=== PATIENT | female | born 2000 | race Caucasian/White ===

== ENCOUNTER 2019-12-15 19:59 | Inpatient (IN) | payer MEDICAID, SELFPAY ==
[2019-12-15 20:00] VITALS: BP 120/72; PULSE 94; RESP 14; TEMP 37.1; O2SAT 98; BMI 36.6
--- NOTE | 2019-12-15 20:13 | HMH.EDOD ---
ED Disposition Clinical Impression: Suicide ideation Acetaminophen overdose Qualifiers: Encounter type: initial encounter Injury intent: intentional self-harm Qualified Code(s): T39.1X2A - Poisoning by 4-Aminophenol derivatives, intentional self-harm, initial encounter Depression Qualifiers: Depression Type: major depressive disorder Major depression recurrence: unspecified whether recurrent Active/Remission status: currently active Major depression episode severity: unspecified Qualified Code(s): F32.9 - Major depressive disorder, single episode, unspecified Disposition: Admitted as Observation Condition on Discharge: Good Referrals: Provider,Referral, [Primary Care Provider] - - Critical Care Critical Care Time: No Attestation: On , the high probability of a clinically significant, sudden or life threatening deterioration of the following system(s) required my full and direct attention, intervention and personal management. The time I documented below is in addition to time spent performing reported procedures but includes the following listed in this critical care notation. Medical Decision Making - Medical Records Medical records reviewed: Yes: I reviewed the patient's medical records. - [place] Inquiry Pt receiving controlled substance: No Vital Signs: 12/15/19 20:00 12/15/19 22:12 12/15/19 23:16 Temperature 98.8 F 98.0 F Temperature Source Oral Oral Pulse Rate [Right] 94 H 64 89 Respiratory Rate 14 16 16 Blood Pressure [Right Arm] 120/72 101/57 L 95/56 L Blood Pressure Mean [Right Arm] 88 71 69 Blood Pressure Source [Right Arm] Automatic Cuff Automatic Cuff Automatic Cuff Blood Pressure Position [Right Arm] Supine Supine Supine 02 Sat by Pulse Oximetry 98 98 94 L Oxygen Delivery Method Room Air Room Air Room Air 12/16/19 00:15 12/16/19 01:14 Temperature 98.0 F 98.0 F Temperature Source Oral Oral Pulse Rate [Right] 79 64 Respiratory Rate 16 16 Blood Pressure [Right Arm] 98/62 L 93/54 L Blood Pressure Mean [Right Arm] 74 67 Blood Pressure Source [Right Arm] Automatic Cuff Automatic Cuff Blood Pressure Position [Right Arm] Supine Supine 02 Sat by Pulse Oximetry 98 99 Oxygen Delivery Method Room Air Room Air - Lab Data Lab results reviewed: Yes: I reviewed the patient's lab results. Lab Results 12/15/19 20:00: Urine Color Yellow, Urine Appearance Clear, Urine pH 6.0, Ur Specific [place] <= 1.005, Urine Protein Negative, Urine Glucose (UA) Negative, Urine Ketones Negative, Urine Blood 1+, Urine Nitrate Negative, Urine Bilirubin Negative, Urine Urobilinogen 0.2, Ur Leukocyte Esterase Negative, Urine RBC 5-10, Urine WBC Occasional 12/15/19 20:00: WBC 12.0 H, RBC 4.84, Hgb 13.1, Hct 38.7, MCV 79.9 L, MCH 26.9 L, MCHC 33.7, RDW 13.5, Plt Count 243, MPV 8.0, Neut % (Auto) 78.6, Lymph % (Auto) 15.0, Rains % (Auto) 4.7, Eos % (Auto) 1.2, Baso % (Auto) 0.4, Neut # (Auto) 9.4 H, Lymph # (Auto) 1.8, Rains # (Auto) 0.6, Eos # (Auto) 0.2, Baso # (Auto) 0.1 12/15/19 20:00: Urine HCG, Qual Negative 12/15/19 20:00: Sodium 139, Potassium 4.1, Chloride 102, Carbon Dioxide 26, Anion Gap 15.1 H, BUN 15, Creatinine 0.90, Estimated Creat Clear 142, Estimated GFR 79, Est GFR ( Amer) 96, Glucose 95, Calcium 9.5, Total Bilirubin 0.2, AST 25, ALT 20, Alkaline Phosphatase 59, Total Protein 7.0, Albumin 4.2, Globulin 2.8, Albumin/Globulin Ratio 1.5, Salicylates < 1.0 L 12/15/19 20:00: Urine Opiates Screen Negative, Urine Methadone Screen Negative, Ur Barbituates Screen Negative, Ur Phencyclidine Scrn Negative, Ur Amphetamines Screen Negative, U Benzodiazepines Scrn Negative, Urine Cocaine Screen Negative, U Marijuana (THC) Screen Negative 12/15/19 22:20: Acetaminophen 81 H 12/16/19 01:05: Acetaminophen 157 H D Result diagrams: 12/15/19 20:00 12/15/19 20:00 Orders (Tests/Meds): ED MEDICATIONS Discontinued Medications Generic Name Dose Route Start Last Admin Trade Name Freq PRN Reason Stop Dose Admin A
--- NOTE | 2019-12-15 20:18 | PC.NURSE ---
Pt states she still feels like hurting herself, a 1:1 sitter was placed on pt, pt was disrobed and place in a gown, she is coopertive at this time with a flat affect
[2019-12-15 20:21] LABS: Microscopic, Urine URINE MICROSCOPIC (MICROSCOPIC)
[2019-12-15 20:24] LABS: Basophils # 0.1 K/mm3 (0-0.2); Basophils % 0.4 % (0.1-2.0); Eosinophils # 0.2 K/mm3 (0.0-0.4); Eosinophils % 1.2 % (0.1-12.0); Hematocrit 38.7 % (37.0-47.0); Hemoglobin 13.1 g/dL (12.2-16.2); Lymphocytes # 1.8 K/mm3 (0.7-4.5); Mean Corpuscular HGB Conc 33.7 g/dL (31.8-35.4); Mean Corpuscular Hemoglobin 26.9 pg (27.0-31.2); Mean Corpuscular Volume 79.9 fl (81-99); Monocytes # 0.6 K/mm3 (0.1-1.0); Monocytes % 4.7 % (1.7-9.3); Neutrophils # 9.4 K/mm3 (1.8-7.8); Neutrophils % 78.6 % (37.0-80.0); Platelet Count 243 K/mm3 (142-424); Red Blood Count 4.84 M/mm3 (4.20-5.40); Red Cell Distribution Width 13.5 % (11.5-17.5)
[2019-12-15 20:26] LABS: Appearance,Urine CLEAR (Clear); Bilirubin,Urine Negative (Negative); Blood, Urine 1+ (Negative); Chloride 102 mmol/L (98-107); Color,Urine YELLOW (Yellow); Glucose,Urine (UA) Negative (Negative); Ketones,Urine Negative (Negative); Leukocyte Esterase,Urine Negative (Negative); Nitrate,Urine Negative (Negative); Potassium 4.1 mmoL/L (3.5-5.1); Protein,Urine Negative (Negative); Sodium 139 mmol/L (136-145); Specific Gravity, Urine <= 1.005 (1.005-1.030); Urobilinogen,Urine 0.2 EU/dl (0.2)
[2019-12-15 20:29] LABS: Alanine Aminotransferase 20 U/L (12-78); Albumin Level 4.2 g/dl (3.5-5.0); Albumin/Globulin Ratio 1.5 (1.1-1.8); Alkaline Phosphatase 59 U/L (38-126); Anion Gap 15.1 mEq/L (5-15); Aspartate Amino Transferase 25 U/L (14-36); Bilirubin,Total 0.2 mg/dl (0.2-1.3); Blood Urea Nitrogen 15 mg/dl (7-17); Calcium 9.5 mg/dl (8.4-10.2); Carbon Dioxide 26 mmol/L (22.0-30.0); Creatinine Clearance Estimated 142 mL/min (50-200); Estimated Glomerular Filt Rate 79 ml/min (>60); GFR (African American) 96 ML/MIN (>60); Globulin 2.8 g/dL (1.3-3.2); Glucose 95 mg/dl (74-100)
[2019-12-15 20:30] LABS: WBC,Urine Occasional #/hpf (0-3)
--- NOTE | 2019-12-15 20:30 | PC.NURSE ---
spoke with poison control, advised to monitor until a 4 hour Acetaminophen level could be done
[2019-12-15 20:31] LABS: Urine Pregnancy, HCG Qual. Negative (Negative)
[2019-12-15 20:35] LABS: Amphetamine/Metha Screen,Urine Negative ng/ml (<1000); Benzodiazepines Screen,Urine Negative ng/ml (<200)
[2019-12-15 20:36] LABS: Barbiturates Screen,Urine Negative ng/ml (<200)
[2019-12-15 20:37] LABS: Cannabinoid Screen,Urine Negative ng/ml (<50); Cocaine Screen,Urine Negative ng/ml (<300)
[2019-12-15 20:38] LABS: Methadone Screen,Urine Negative ng/ml (<300); Salicylate < 1.0 mg/dL (2.0-20.0)
[2019-12-15 20:39] LABS: Opiate Screen,Urine Negative ng/ml (<300); Phencyclidine Screen,Urine Negative ng/ml (<25)
--- NOTE | 2019-12-15 21:11 | PC.NURSE ---
with pt permission spoke with mignon from [facility] to update her on pt condition
[2019-12-15 22:12] VITALS: BP 101/57; PULSE 64; RESP 16; O2SAT 98
[2019-12-15 22:37] LABS: Acetaminophen 81 ug/ml (10-30)
--- NOTE | 2019-12-15 22:56 | PC.NURSE ---
Poison control updated on Acetaminophen level, she is going to check with her poison control doctor and call us back.
[2019-12-15 23:16] VITALS: BP 95/56; PULSE 89; RESP 16; TEMP 36.7; O2SAT 94
[2019-12-16] VITALS (10 sets, daily range): BP systolic 93–121; BP diastolic 54–79; PULSE 54–79; RESP 16–18; TEMP 36.4–37; O2SAT 96–100; BMI 37.1
[2019-12-16 01:38] LABS: Acetaminophen 157 ug/ml (10-30)
--- NOTE | 2019-12-16 02:28 | PC.NURSE ---
Pt drank Acetylcystine without issue, pt has been cooperative, remains on 1:1 with Suicidal Ideations. Admitted to the floor, report given to Doris KAUR.
--- NOTE | 2019-12-16 02:30 | PC.NURSE ---
pt arrived to floor via wheelchair from ED
--- NOTE | 2019-12-16 03:46 | PC.NURSE ---
CONSTANTINE FROM POISON CONTROL CALLED FOR AN UPDATE ON THIS PT, UPDATE PROVIDED AND MUCOMYST ORDER VERIFIED AT THIS TIME.
--- NOTE | 2019-12-16 05:11 | PC.NURSE ---
A&OX3. PERRLA. PROOFER BLACK AND WHITE EQUAL BILAT. LUNGS CLEAR T/O AUSCULTATION, TOLERATED RA WELL. ABDOMEN NONDISTENDED, ACTIVE BOWEL SOUNDS AUSCULTATED, SOFT AND NONTENDER PER PALPATION. SINCE ARRIVAL TO FLOOR PT HAS HAD C/O NAUSEA, ADMINISTERED ZOFRAN PER OCT, ON REASSESSMENT, PT STILL C/O NAUSEA, MADE AWARE, ORDER FOR PRN 12.5 MG IV PHENERGAN OBTAINED. WHEN NURSE WENT TO GO CHECK ON PT AND OFFER DOSE OF PHENERGAN, PT WAS NOTED RESTING WITH EYES CLOSED. PT HAS REMAINED IN 1:1 OBSERVATION R/T SUICIDAL IDEATIONS. INDEPENDENT WITH ADLS. VSS. WILL CONTINUE TO MONITOR.
--- NOTE | 2019-12-16 05:40 | PC.NURSE ---
AROUND THIS TIME, POISON CONTROL WAS CONTACTED IN R/T VERIFYING LABS AND TIMES NEEDED FOR THIS PT. WAS INSTRUCTED TO OBTAIN TYLENOL, PT, INR LABS 2-4 HOURS FOLLOWING ADMINISTRATION OF LAST DOSE OF MUCOMYST GIVEN.
[2019-12-16 07:24] LABS: Basophils % 0.3 % (0.1-2.0); Chloride 104 mmol/L (98-107); Eosinophils # 0.1 K/mm3 (0.0-0.4); Eosinophils % 1.1 % (0.1-12.0); Hematocrit 41.4 % (37.0-47.0); Hemoglobin 13.5 g/dL (12.2-16.2); INR 0.96 (0.9-1.1); Lymphocytes # 1.4 K/mm3 (0.7-4.5); Lymphocytes % 15.3 % (10-50); Mean Corpuscular HGB Conc 32.6 g/dL (31.8-35.4); Mean Corpuscular Hemoglobin 26.9 pg (27.0-31.2); Mean Corpuscular Volume 82.3 fl (81-99); Mean Platelet Volume 8.1 fl (7.4-10.4); Monocytes # 0.4 K/mm3 (0.1-1.0); Monocytes % 4.1 % (1.7-9.3); Neutrophils # 7.4 K/mm3 (1.8-7.8); Neutrophils % 79.2 % (37.0-80.0); Platelet Count 270 K/mm3 (142-424); Potassium 4.2 mmoL/L (3.5-5.1); Red Blood Count 5.03 M/mm3 (4.20-5.40); Red Cell Distribution Width 13.8 % (11.5-17.5); Sodium 138 mmol/L (136-145); White Blood Count 9.3 K/mm3 (4.8-10.8)
[2019-12-16 07:26] LABS: Alkaline Phosphatase 57 U/L (38-126); Anion Gap 12.2 mEq/L (5-15); Bilirubin,Total 0.2 mg/dl (0.2-1.3); Blood Urea Nitrogen 12 mg/dl (7-17); Carbon Dioxide 26 mmol/L (22.0-30.0); Creatinine Clearance Estimated 185 mL/min (50-200); Estimated Glomerular Filt Rate 106 ml/min (>60); GFR (African American) 128 ML/MIN (>60)
[2019-12-16 07:27] LABS: Albumin Level 3.9 g/dl (3.5-5.0); Albumin/Globulin Ratio 1.4 (1.1-1.8); Calcium 9.2 mg/dl (8.4-10.2); Globulin 2.8 g/dL (1.3-3.2); Glucose 100 mg/dl (74-100); Total Protein,Serum 6.7 g/dl (6.3-8.2)
[2019-12-16 07:28] LABS: Alanine Aminotransferase 16 U/L (12-78); Aspartate Amino Transferase 25 U/L (14-36)
[2019-12-16 07:47] LABS: Acetaminophen 45 ug/ml (10-30)
--- NOTE | 2019-12-16 08:40 | P.CONPHA_ITS ---
[facility] Pharmacy VTE Monitoring - Patient Demographics Admission date: 12/16/19 Report Date: 12/16/19 Time: 08:40 Allergies/Adverse Reactions: Patient Allergies red dye Allergy (Severe, Verified 11/04/19 10:48) hives albuterol Allergy (Verified 11/04/19 10:48) Anaphylaxis Height: 1.57 m Weight: 92.108 kg Patient Problems: Current Active Problems Acetaminophen overdose (Acute) Depression (Acute) Suicide ideation (Acute) - VTE Risk Labs: VTE Related Lab Results Hgb 13.5 g/dL (12.2-16.2) 12/16/19 07:02 Hct 41.4 % (37.0-47.0) 12/16/19 07:02 Plt Count 270 K/mm3 (142-424) 12/16/19 07:02 PT 10.0 seconds (9.4-11.8) 12/16/19 07:02 INR 0.96 (0.9-1.1) 12/16/19 07:02 BUN 12 mg/dl (7-17) 12/16/19 07:02 Creatinine 0.70 mg/dl (0.52-1.04) D 12/16/19 07:02 Estimated Creat Clear 185 mL/min (50-200) 12/16/19 07:02 Was VTE Risk Assessment Performed: Yes VTE Score: 1 VTE Risk Level: Low Risk - Prophylaxis VTE Prophylaxis Ordered?: Yes Types of VTE Prophylaxis: TEDS Knee High Location of Applied Device: Bilateral Lower Extremeties
--- NOTE | 2019-12-16 09:56 | HMH.HP ---
*Admission Date: 12/16/19 *Chief complaint: Tylenol overdose *History of present illness: Ambulatory 1-year-old white female with a history of depression, anxiety and PTSD who was brought to the emergency room last evening by EMS after ingesting an intentional overdose of Tylenol. She reported taking 24 tablets of the 650 mg dosage of Tylenol with the intent of ending her life. She apparently resides in a [facility] in [place] after a recent hospitalization at [facility]. She reportedly advised the staff of the overdose at which point she was brought to the emergency room. This was within about 2 hours of having taken the overdose. Her 4-hour acetaminophen level was below the treatment line of the normogram at 85, however the 8-hour acetaminophen level was elevated at 157 and just above the recommended treatment line on the nomogram at which time treatment with acetylcysteine was initiated in the emergency room. The remainder of her labs showed a slightly elevated white count of 12,000. Liver functions were normal. test was negative. She has been admitted to complete the 72-hour acetylcysteine treatment protocol. At the time of my exam this morning she has no complaints. She is tolerating the acetylcysteine. She admits to taking the Tylenol with the intent of harming herself. She states she became upset and felt like no one cared. She is followed by psychiatrist and is currently under treatment. She reports previous suicide attempts by taking an overdose. States she was hospitalized in [facility] last year for a Tylenol overdose and is also overdosed on lithium in the past. [facility] History Medical History: Reports:: Anxiety, Depression, Migraine Denies:: Cancer, Diabetes Mellitus Type 1, Diabetes Mellitus Type 2 *Have you ever received a pneumonia vaccine?: No *Have you received a flu vaccine this season?: No Other Medical History: Reports: Arthritis Other Surgeries: Yes: No Previous Surgery, Other ([place] teeth extracted) Amputation: Yes Fractures: No - *Social History Educational Level: Completed High School Smoking Status: Current every day smoker Tobacco Type: cigarettes # Packs/Day (cigarettes): 1 Alcohol Intake: current Alcohol Intake Frequency:: other Substance Use Type: marijuana *Occupational Status:: disabled Housing: assisted living facility Household Members: other *Travel in the last 8 weeks: None - Psychiatric History Expresses thoughts of harming self/others: None Suicide Plan Description: No Plan Pschychiatric History:: Reports:: Anxiety, Depression, Suicide Attempt Family Hx:: Cancer (Mother with colon cancer) Review of Systems - Constitutional Reports body ache(s), Reports chills - Eyes Reports blurry vision, Denies loss of vision - ENT Denies difficulty swallowing, Denies hoarseness, Denies sore throat - *Cardiovascular Denies chest pain at rest, Denies shortness of breath with activity, Denies irregular heart rhythm, Denies leg swelling, Denies rapid, pounding, or irregular heartbeat - *Respiratory Denies chest congestion, Denies cough - *Gastrointestinal Denies change in bowel habits, Denies vomiting blood, Denies black, tarry stools - *Genitourinary Denies abnormal periods, Denies painful urination - *Musculoskeletal Denies muscle cramps - Integumentary/Breasts Denies yellowing of the skin, Denies unusual bruising - *Neurologic Denies abnormal speech, Denies seizure-like activity, Denies localized weakness, Denies headache(s) - Psychiatric Reports lack of enjoyment, Reports anxiety, Reports depression, Reports thoughts of hurting/killing yourself - Endocrine Denies flushing - Hematologic/Lymphatic Denies easy bruising Meds Home Medications Medication Instructions Recorded Confirmed Type lithium carbonate 300 mg capsule 600 mg PO HS 09/16/19 12/16/19 History naltrexone 50 mg tablet 50 mg PO DAILY 09/16/19 12/16/19 History prazosin 5 mg capsule 5 mg PO
[2019-12-16 10:56] LABS: Acetaminophen 16 ug/ml (10-30)
--- NOTE | 2019-12-16 14:17 | PC.NURSE ---
Pt continues to be 1:1 direct observation at all times. Pt exhibits no aberrant behaviors. Pt takes medications willingly and without difficulty. Denies pain/shortness of breath.
[2019-12-17 04:00] VITALS: BP 105/61; PULSE 69; RESP 16; TEMP 36.7; O2SAT 97
--- NOTE | 2019-12-17 04:29 | PC.NURSE ---
Pt has been up most of the night watching tv. Pt remains in 1on1 precautions for suicidal ideation. Pt is A&O and pleasant. She takes medications w/o issues and is independent w/ ADL' s. No complaints reported other than acetlycysteine upsetting her stomach but no N/V noted. She has been taking ordered amount in 118cc of orange juice. VSS. Will continue to monitor.
[2019-12-17 05:08] VITALS: BMI 37.3
[2019-12-17 07:32] LABS: Acetaminophen < 10 ug/ml (10-30); Alanine Aminotransferase 13 U/L (12-78); Albumin Level 3.9 g/dl (3.5-5.0); Albumin/Globulin Ratio 1.3 (1.1-1.8); Alkaline Phosphatase 55 U/L (38-126); Anion Gap 13.3 mEq/L (5-15); Aspartate Amino Transferase 23 U/L (14-36); Bilirubin,Total 0.1 mg/dl (0.2-1.3); Blood Urea Nitrogen 10 mg/dl (7-17); Calcium 9.5 mg/dl (8.4-10.2); Carbon Dioxide 25 mmol/L (22.0-30.0); Chloride 103 mmol/L (98-107); Creatinine Clearance Estimated 216 mL/min (50-200); Estimated Glomerular Filt Rate 126 ml/min (>60); GFR (African American) 153 ML/MIN (>60); Globulin 2.9 g/dL (1.3-3.2); Glucose 91 mg/dl (74-100); Potassium 4.3 mmoL/L (3.5-5.1); Sodium 137 mmol/L (136-145); Total Protein,Serum 6.8 g/dl (6.3-8.2)
[2019-12-17 07:49] VITALS: O2SAT 98
[2019-12-17 08:00] VITALS: BP 127/84; PULSE 67; RESP 16; TEMP 36.9; O2SAT 96
--- NOTE | 2019-12-17 09:31 | HMH.ACPN2 ---
Internal Medicine - PN: Libby *Date: 12/17/19 *Time: 09:31 Interval history: She has been cooperative with care and taking medicines appropriately. She tells me this morning however that she would like to leave. I explained she needs to complete the course of acetylcysteine to protect her liver. She states I do not care about my liver . Appetite is been good. She states her bowels are moving. Exam Vital signs and Labs for Last 24 Hours: Temp Pulse Resp BP Pulse Ox 98.5 F 67 16 127/84 96 12/17/19 08:00 12/17/19 08:00 12/17/19 08:00 12/17/19 08:00 12/17/19 08:00 Laboratory Results - last 24 hr 12/16/19 10:35: Acetaminophen 16 12/17/19 06:50: Sodium 137, Potassium 4.3, Chloride 103, Carbon Dioxide 25, Anion Gap 13.3, BUN 10, Creatinine 0.60, Estimated Creat Clear 216, Estimated GFR 126, Est GFR ( Amer) 153, Glucose 91, Calcium 9.5, Total Bilirubin 0.1 L, AST 23, ALT 13, Alkaline Phosphatase 55, Total Protein 6.8, Albumin 3.9, Globulin 2.9, Albumin/Globulin Ratio 1.3, Acetaminophen < 10 L I & O for Last 24 hours: Intake & Output 12/14/19 12/15/19 12/16/19 12/17/19 11:59 11:59 11:59 11:59 Intake Total 411 / 411 3124 / 3124 Output Total 500 / 500 1850 / 1850 Balance -89 / -89 1274 / 1274 Weight 203 lb 1 oz 203 lb 3 oz Narrative: Alert and pleasant. Appears in no distress. Abdomen is soft and nondistended with no tenderness. Assessment and Plan (1) Suicidal intent Current visit: Yes Status: Acute Category: Medical Code(s): R45.851 - Suicidal ideations (2) Acetaminophen overdose Current visit: Yes Status: Acute Qualifiers: Encounter type: initial encounter Injury intent: intentional self-harm Qualified Code(s): T39.1X2A - Poisoning by 4-Aminophenol derivatives, intentional self-harm, initial encounter Category: Medical Code(s): T39.1X1A - Poisoning by 4-Aminophenol derivatives, accidental (unintentional), initial encounter (3) Depression Current visit: Yes Status: Acute Qualifiers: Depression Type: major depressive disorder Major depression recurrence: unspecified whether recurrent Active/Remission status: currently active Major depression episode severity: unspecified Qualified Code(s): F32.9 - Major depressive disorder, single episode, unspecified Category: Medical Code(s): F32.9 - Major depressive disorder, single episode, unspecified - Assessment and plan all Dx Assessment and Plan for all problems:: Liver functions remain normal and acetaminophen level is now less than 10. We will continue with the acetylcysteine protocol. Social service and psych consult tomorrow.
[2019-12-17 16:00] VITALS: BP 125/65; PULSE 72; RESP 20; TEMP 36.8; O2SAT 96
[2019-12-17 20:00] VITALS: BP 120/72; PULSE 70; RESP 16; TEMP 36.7; O2SAT 98
--- NOTE | 2019-12-17 20:48 | PC.NURSE ---
patient awake alert and oriented, affect flat, guarded and withdrawn. patient is cooperative,denies feelings of hopelessness or wanting to harm self at this time. all sharp objects, cords, metal pieces and disinfectant wipes removed from room. will continue to monitor.
[2019-12-18 04:00] VITALS: BP 112/68; PULSE 68; RESP 16; TEMP 36.8; O2SAT 97
[2019-12-18 05:57] VITALS: BMI 37.4
[2019-12-18 07:55] VITALS: BP 113/66; PULSE 92; RESP 20; TEMP 36.8; O2SAT 95
--- NOTE | 2019-12-18 09:43 | HMH.ACPN2 ---
<Shabnam Felix - Last Filed: 12/18/19 13:10> Internal Medicine - PN: Subj *Date: 12/18/19 *Time: 13:10 Interval history: Patient states she slept last night. She is eating without problems. She denies any pain. Her bowels have not moved for a couple of days. She is voiding QS. She states she has been thinking about how to harm herself. She continues to be a one-on-one in the room observation Exam Vital signs and Labs for Last 24 Hours: Temp Pulse Resp BP Pulse Ox 98.3 F 92 H 20 113/66 95 12/18/19 07:55 12/18/19 07:55 12/18/19 07:55 12/18/19 07:55 12/18/19 07:55 I & O for Last 24 hours: Intake & Output 12/15/19 12/16/19 12/17/19 12/18/19 11:59 11:59 11:59 11:59 Intake Total 411 / 411 3124 / 3124 3048 / 3048 Output Total 500 / 500 1850 / 1850 700 / 700 Balance -89 / -89 1274 / 1274 2348 / 2348 Weight 203 lb 1 oz 203 lb 3 oz 203 lb 4.259 oz - Constitutional no acute distress Comments: Lying in bed with eyes closed. Awakens easily. - *Routine Respiratory Exam Present: CTA bilaterally (Anteriorly and posteriorly) - *Routine Cardiovascular Exam Present: RRR - *Routine Abdominal Exam Present: soft, normoactive bowel sounds. Absent: tenderness - *Routine Extremities Exam Absent: edema, calf tenderness - *Routine Neurological Exam Present: alert, oriented X3, normal speech - Routine Psychiatric Exam Present: suicidal ideation Comments: Flat affect Assessment and Plan (1) Suicidal intent Current visit: Yes Status: Acute Category: Medical Code(s): R45.851 - Suicidal ideations (2) Acetaminophen overdose Current visit: Yes Status: Acute Qualifiers: Encounter type: initial encounter Injury intent: intentional self-harm Qualified Code(s): T39.1X2A - Poisoning by 4-Aminophenol derivatives, intentional self-harm, initial encounter Category: Medical Code(s): T39.1X1A - Poisoning by 4-Aminophenol derivatives, accidental (unintentional), initial encounter (3) Depression Current visit: Yes Status: Acute Qualifiers: Depression Type: major depressive disorder Major depression recurrence: unspecified whether recurrent Active/Remission status: currently active Major depression episode severity: unspecified Qualified Code(s): F32.9 - Major depressive disorder, single episode, unspecified Category: Medical Code(s): F32.9 - Major depressive disorder, single episode, unspecified - Assessment and plan all Dx Assessment and Plan for all problems:: Patient is to have a psych consult today. She will need placement. <Vahid Brooks - Last Filed: 12/18/19 17:16> Internal Medicine - PN: Subj *Date: 12/18/19 *Time: 17:14 Exam Vital signs and Labs for Last 24 Hours: Temp Pulse Resp BP Pulse Ox 98.3 F 92 H 20 113/66 95 12/18/19 07:55 12/18/19 07:55 12/18/19 07:55 12/18/19 07:55 12/18/19 07:55 I & O for Last 24 hours: Intake & Output 12/16/19 12/17/19 12/18/19 12/19/19 11:59 11:59 11:59 11:59 Intake Total 411 / 411 3124 / 3124 3048 / 3048 840 / 840 Output Total 500 / 500 1850 / 1850 700 / 900 400 / 400 Balance -89 / -89 1274 / 1274 2348 / 2148 440 / 440 Weight 203 lb 1 oz 203 lb 3 oz 203 lb 4.259 oz Assessment and Plan (1) Suicidal intent Current visit: Yes Status: Acute Category: Medical Code(s): R45.851 - Suicidal ideations (2) Acetaminophen overdose Current visit: Yes Status: Acute Qualifiers: Encounter type: initial encounter Injury intent: intentional self-harm Qualified Code(s): T39.1X2A - Poisoning by 4-Aminophenol derivatives, intentional self-harm, initial encounter Category: Medical Code(s): T39.1X1A - Poisoning by 4-Aminophenol derivatives, accidental (unintentional), initial encounter (3) Depression Current visit: Yes Status: Acute Qualifiers: Depression Type: major depressive disorder Major depression recurrence: unspecified whet
--- NOTE | 2019-12-18 10:58 | PC.NURSE ---
THIS RN RECEIVED A PHONE CALL FROM AWAIS AT [facility]. AWAIS STATED THAT HER DIRECTOR WANTED HER TO PHONE [facility] TO INFORM US THAT PATIENT HAS BEEN WANTING TO GO TO [facility]. THIS RN INFORMED AWAIS THAT I WILL PASS ALONG THE MESSAGE. NO PERSONAL INFORMATION PROVIDED TO AWAIS.
--- NOTE | 2019-12-18 11:22 | SW/DCPLANNER ---
Addendum entered by Veronica Victoria 12/18/19 14:50: LEEANN ROSALES EVALUATED MS FUENTES THIS AM AND STATED SHE DOES NOT NEED TO GO BACK TO THAT PERSONAL [facility] AND THINKS SHE NEEDS TO GO BACK TO [facility].. SHE STATED SHE FELT SHE IS STILL SUICIDAL AND NOT SAFE.. I HAVE MADE CALLS TO THE PERSONAL FDC AND THEY AGREED. I HAVE DONE A COURT ORDER TO PETITION FOR HER TO GO TO [facility] AND WAITING FOR THEM TO ACCEPT PATIENT BEFORE I SEND THE PAPERWORK... ONCE MD SPEAKS WITH ZULEMA GUTIERREZ I WILL CALL DISPATCH AND SEE IF THEY CAN COME AND GET THE PAPERWORK TO THE PORT PURSER TO SIGN OFF....ONCE IT IS COMPLETED SHE WILL DISCHARGE TO [facility].. Original Note: WENT IN TO SEE THIS PATIENT THIS AM TO SPEAK WITH HER ABOUT HER DISCHARGE PLANS: MS FUENTES PRESENTED INTO THE HOSPITAL WITH A TYLENOL OVERDOSE... SHE RESIDES AT THE [facility] AND WAS RECENTLY IN THE TRANSITIONAL FDC IN [place] AND WAS SWITCHED OVER TO THE PERSONAL FDC.. SHE WILL BE SEEN BY OUR [facility] TODAY PRIOR TO HER GOING BACK TO SEE IF SHE NEEDS MEDICATION ADJUSTMENTS.. WILL MAKE CONTACT WITH THE [facility] BEFORE SHE IS SENT BACK...I HAVE MADE A COUPLE ATTEMPTS TO MAKE CALLS TO THE FACILITY AND CAN NOT GET ANYONE TO ANSWER MY CALL.... I DID LEAVE A VOICE MESSAGE ON THE MAIN NUMBER...
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
--- NOTE | 2019-12-18 20:36 | PC.NURSE ---
THIS RN RECEIVED A PHONE CALL FROM VANDANA JOHNSON FROM [email or web address] TO INQUIRE WHETHER PATIENT HAS FINISHED TREATMENT FOR TYLENOL POISONING. THIS RN REPORTED THAT PATIENT HAD COMPLETED THE COURSE. THIS RN WAS INFORMED BY ANTHONY EVANS, CARE MANAGEMENT THAT PATIENT IS GOING TO TRANSFER TO [facility]. THIS RN PROVIDED REPORT TO VINCENT MODI. THIS RN PROVIDED D/C INSTRUCTIONS TO PATIENT AND PATIENT VERBALIZED AN UNDERSTANDING.
--- NOTE | 2019-12-19 22:39 | HMH.DCSUM ---
General - General Admission date:: 12/16/19 <Vahid Brooks - 12/27/19 10:20> 12/16/19 <Kym Chery - 12/19/19 22:46> Discharge date: 12/18/19 <MiriKym - 12/19/19 22:46> HPI HPI: Melany is a 19-year-old white female with a history of depression, anxiety and PTSD who was brought to the emergency room last evening by EMS after ingesting an intentional overdose of Tylenol. She reported taking 24 tablets of the 650 mg dosage of Tylenol with the intent of ending her life. She apparently resides in a alf in [place] after a recent hospitalization at [facility]. She reportedly advised the staff of the overdose at which point she was brought to the emergency room. This was within about 2 hours of having taken the overdose. Her 4-hour acetaminophen level was below the treatment line of the normogram at 85, however the 8-hour acetaminophen level was elevated at 157 and just above the recommended treatment line on the nomogram at which time treatment with acetylcysteine was initiated in the emergency room. The remainder of her labs showed a slightly elevated white count of 12,000. Liver functions were normal. test was negative. She was admitted to complete the 72-hour acetylcysteine treatment protocol. <Kym Chery - 12/19/19 22:46> Hospital Course Hospital Course: The patient tolerated the acetylcysteine. She admitted to taking the Tylenol with the intent to harm herself. She stated she became upset and felt like no one cared. She was followed by a psychiatrist and was currently under treatment. She reported previous suicide attempts by taking overdoses. She had been hospitalized in [facility] previously for Tylenol overdose and had also overdosed on lithium in the past. She remained in one-on-one care. Her acetaminophen levels and liver function tests were monitored. By 12/17/2019 the patient wanted to leave. She was advised to stay to complete her course of acetylcysteine to protect her liver. Her liver function tests did remain normal and her acetaminophen level had decreased to less than 10. environmental services aide was consulted and a psych consult was ordered as well. She remained in one-on-one care and continued to think about how to harm herself. It was felt she would need placement. She was anxious to be discharged but was not appropriate to return to her alf. She was seen in consultation by Mary Traore who recommended transfer to an inpatient facility for further evaluation and care. The patient was transferred to [facility]. <Kym Chery - 12/19/19 22:46> Objective Vital signs: Temp Pulse Resp BP Pulse Ox 98.3 F 92 H 20 113/66 95 12/18/19 07:55 12/18/19 07:55 12/18/19 07:55 12/18/19 07:55 12/18/19 07:55 <Vahid Brooks - 12/27/19 10:20> Temp Pulse Resp BP Pulse Ox 98.3 F 92 H 20 113/66 95 12/18/19 07:55 12/18/19 07:55 12/18/19 07:55 12/18/19 07:55 12/18/19 07:55 <Kym Chery - 12/19/19 22:46> Narrative: She is resting in bed with her eyes closed. She arouses easily and is alert and oriented. She answers questions appropriately. Affect is flat. HEENT shows a cream to be atraumatic and normocephalic. Sclera conjunctive are clear. Nares patent. Neck is supple with no masses or thyromegaly. Lungs are clear. Heart is regular with no ectopy. Abdomen is soft and nondistended with no unusual masses or tenderness. Extremities show no edema. <Kym Chery - 12/19/19 22:46> DS: Diagnosis - Discharge Diagnosis (1) Suicidal intent Status: Acute (2) Acetaminophen overdose Status: Acute (3) Depression Status: Acute <Kym Chery - 12/19/19 22:39> (1) Suicidal intent Status: Acute (2) Acetaminophen overdose Status: Acute (3) Depression Status: Acute <Vahid Brooks - 12/27/19 10:20> Discharge Plan - Patient Discharge Instruct
== END 2019-12-18 16:35 | DRG 918 ==
LOC: ER 12-16 01:53 → 2ND 12-17 15:01
PROVIDERS: Admitting Provider Family Medicine; Emergency Provider Emergency Medicine; Visit Provider Family Medicine
DX: T39.1X2A Poisoning by 4-Aminophenol derivatives, intentional self-harm, initial encounter (principal); Z91.5 Personal history of self-harm; F32.9 Major depressive disorder, single episode, unspecified
CPT/HCPCS: 36415; 80053; 80305; 80329; 81001; 81025; 85025; 85610; 99285; J2405

== ENCOUNTER 2020-05-27 20:03 | Emergency (ER) | payer MEDICAID, SELFPAY ==
[2020-05-27 20:10] VITALS: BP 126/93; PULSE 103; RESP 16; TEMP 37.1; O2SAT 96; BMI 38.9
--- NOTE | 2020-05-27 20:12 | PC.NURSE ---
ALL CLOTHES REMOVED, BELONGINGS REMOVED, AND PT DRESSED OUT AT THIS TIME. REMOVED ALL POTENTIAL OBJECTS FOR SELF INTENT HARM ISSUES; 1-ON-1 AT THIS TIME.
--- NOTE | 2020-05-27 20:14 | ECG_ITS ---
APPROVED REPORT Exam: Resting ECG HR:93 bpm ECG Measurements Heart Rate 93 AXES MO 156 P 24 QRSd 78 QRS 73 QT 328 T 31 QTc 407 Conclusion Normal sinus rhythm Normal ECG Electronically signed by : John Vickers, 05/28/2020 07:20:51
--- NOTE | 2020-05-27 20:14 | PC.NURSE ---
pt belongings removed from the room, cords removed from the room, pt placed in a gown, and staff is at the bedside within arms reach.
--- NOTE | 2020-05-27 20:35 | PC.NURSE ---
URINE GIVEN, LABS OBTAINED, WAITING RESULTS
--- NOTE | 2020-05-27 20:41 | HMH.EDPSYCH ---
ED Disposition Clinical Impression: Suicide ideation Depression Qualifiers: Depression Type: major depressive disorder Major depression recurrence: unspecified whether recurrent Active/Remission status: remission status unspecified Qualified Code(s): F32.9 - Major depressive disorder, single episode, unspecified Disposition: Xfer Psychiatric Hosp Condition on Discharge: Good Referrals: PCP,No [Primary Care Provider] - - Critical Care Critical Care Time: No Attestation: On 05/27/20, the high probability of a clinically significant, sudden or life threatening deterioration of the following system(s) required my full and direct attention, intervention and personal management. The time I documented below is in addition to time spent performing reported procedures but includes the following listed in this critical care notation. Medical Decision Making - Medical Records Medical records reviewed: Yes: I reviewed the patient's medical records. - [place] Inquiry Pt receiving controlled substance: No Vital Signs: 05/27/20 20:10 Temperature 98.7 F Temperature Source Oral Pulse Rate [Right Brachial] 103 H Respiratory Rate 16 Blood Pressure [Right Arm] 126/93 H Blood Pressure Mean [Right Arm] 104 Blood Pressure Source [Right Arm] Automatic Cuff Blood Pressure Position [Right Arm] Sitting 02 Sat by Pulse Oximetry 96 Oxygen Delivery Method Room Air - Lab Data Lab results reviewed: Yes: I reviewed the patient's lab results. Lab Results 05/27/20 20:25: WBC 9.7, RBC 5.30, Hgb 13.5, Hct 41.6, MCV 78.4 L, MCH 25.5 L, MCHC 32.5, RDW 14.6, Plt Count 290, MPV 7.7, Neut % (Auto) 76.9, Lymph % (Auto) 14.9, Coffee % (Auto) 5.3, Eos % (Auto) 2.1, Baso % (Auto) 0.7, Neut # (Auto) 7.4, Lymph # (Auto) 1.4, Coffee # (Auto) 0.5, Eos # (Auto) 0.2, Baso # (Auto) 0.1 05/27/20 20:25: Sodium 140, Potassium 3.9, Chloride 106, Carbon Dioxide 25, Anion Gap 12.9, BUN 11, Creatinine 0.70, Estimated Creat Clear 194, Estimated GFR 106, Est GFR ( Amer) 128, Glucose 99, Calcium 9.7, Total Bilirubin 0.3, AST 51 H, ALT 50, Alkaline Phosphatase 79, Total Protein 7.9, Albumin 4.6, Globulin 3.3 H, Albumin/Globulin Ratio 1.4 05/27/20 20:25: Plasma/Serum Alcohol < 10 05/27/20 20:25: Salicylates < 1.0 L, Acetaminophen < 10 L 05/27/20 20:53: Urine Color Yellow, Urine Appearance Sl cloudy, Urine pH 6.0, Ur Specific [place] 1.025, Urine Protein Trace, Urine Glucose (UA) Negative, Urine Ketones Negative, Urine Blood Trace-i, Urine Nitrate Negative, Urine Bilirubin Negative, Urine Urobilinogen 0.2, Ur Leukocyte Esterase Negative, Urine RBC 3-5, Urine WBC 5-10, Ur Squamous Epith Cells 5-10, Urine Bacteria 2+, Urine Mucus 1+ 05/27/20 20:53: Urine HCG, Qual Negative 05/27/20 20:53: Urine Opiates Screen Negative, Urine Methadone Screen Negative, Ur Barbituates Screen Negative, Ur Phencyclidine Scrn Negative, Ur Amphetamines Screen Negative, U Benzodiazepines Scrn Negative, Urine Cocaine Screen Negative, U Marijuana (THC) Screen Negative Result diagrams: 05/27/20 20:25 05/27/20 20:25 Orders (Tests/Meds): ORDERS Category Date Time Status Urine Culture Stat Micro 05/27/20 20:53 Received - ECG Data Tracing #1 Normal Sinus Rhythm: Yes Ischemic changes: non-specific ST-T wave changes Psych HPI - General Chief Complaint: Psychiatric Symptoms Stated Complaint: SI Time Seen by Provider: 05/27/20 20:20 Mode of Arrival: EMS Source of Information: Patient, EMS, Medical Record Limitations: No Limitations Description of Symptoms (Recalled from ER Triage Doc. by RN): Patient brought in by [facility] with report PD found [place]. Patient reports she had a bad day today, worse than normal so she went and stood on the railroad tracks waiting for a train to hit her. Patient reports this is not the first time she has wanted to or attempted to kill herself. Patient has an extensive psychiatric hx. - History of Present Illness
[2020-05-27 20:46] LABS: Basophils # 0.1 K/mm3 (0-0.2); Basophils % 0.7 % (0.1-2.0); Eosinophils # 0.2 K/mm3 (0.0-0.4); Eosinophils % 2.1 % (0.1-12.0); Hematocrit 41.6 % (37.0-47.0); Hemoglobin 13.5 g/dL (12.2-16.2); Lymphocytes # 1.4 K/mm3 (0.7-4.5); Lymphocytes % 14.9 % (10-50); Mean Corpuscular HGB Conc 32.5 g/dL (31.8-35.4); Mean Corpuscular Hemoglobin 25.5 pg (27.0-31.2); Mean Corpuscular Volume 78.4 fl (81-99); Mean Platelet Volume 7.7 fl (7.4-10.4); Monocytes # 0.5 K/mm3 (0.1-1.0); Monocytes % 5.3 % (1.7-9.3); Neutrophils # 7.4 K/mm3 (1.8-7.8); Neutrophils % 76.9 % (37.0-80.0); Platelet Count 290 K/mm3 (142-424); Red Cell Distribution Width 14.6 % (11.5-17.5); White Blood Count 9.7 K/mm3 (4.8-10.8)
[2020-05-27 20:49] LABS: Chloride 106 mmol/L (98-107); Sodium 140 mmol/L (136-145)
[2020-05-27 20:50] LABS: Potassium 3.9 mmoL/L (3.5-5.1)
[2020-05-27 20:52] LABS: Alanine Aminotransferase 50 U/L (12-78); Alkaline Phosphatase 79 U/L (38-126); Aspartate Amino Transferase 51 U/L (14-36); Bilirubin,Total 0.3 mg/dl (0.2-1.3); Blood Urea Nitrogen 11 mg/dl (7-17); Creatinine Clearance Estimated 194 mL/min (50-200); Estimated Glomerular Filt Rate 106 ml/min (>60); GFR (African American) 128 ML/MIN (>60)
[2020-05-27 20:53] LABS: Albumin Level 4.6 g/dl (3.5-5.0); Albumin/Globulin Ratio 1.4 (1.1-1.8); Anion Gap 12.9 mEq/L (5-15); Calcium 9.7 mg/dl (8.4-10.2); Carbon Dioxide 25 mmol/L (22.0-30.0); Ethyl Alcohol < 10 mg/dl (0-10); Globulin 3.3 g/dL (1.3-3.2); Glucose 99 mg/dl (74-100); Total Protein,Serum 7.9 g/dl (6.3-8.2)
[2020-05-27 20:56] LABS: Microscopic, Urine URINE MICROSCOPIC (MICROSCOPIC)
[2020-05-27 20:59] LABS: Appearance,Urine SL CLOUDY (Clear); Blood, Urine TRACE-I (Negative); Color,Urine YELLOW (Yellow); Glucose,Urine (UA) Negative (Negative); Ketones,Urine Negative (Negative); Leukocyte Esterase,Urine Negative (Negative); Nitrate,Urine Negative (Negative); Protein,Urine TRACE (Negative); Specific Gravity, Urine 1.025 (1.005-1.030); Urobilinogen,Urine 0.2 EU/dl (0.2)
[2020-05-27 21:03] LABS: Urine Pregnancy, HCG Qual. Negative (Negative)
[2020-05-27 21:08] LABS: Bilirubin,Urine Negative (Negative)
[2020-05-27 21:09] LABS: Acetaminophen < 10 ug/ml (10-30); Salicylate < 1.0 mg/dL (2.0-20.0)
[2020-05-27 21:09] LABS: Bacteria,Urine 2+ /lpf; Barbiturates Screen,Urine Negative ng/ml (<200); Benzodiazepines Screen,Urine Negative ng/ml (<200); Mucus,Urine 1+ /lpf
[2020-05-27 21:10] LABS: Amphetamine/Metha Screen,Urine Negative ng/ml (<1000)
[2020-05-27 21:11] LABS: Cannabinoid Screen,Urine Negative ng/ml (<50); Cocaine Screen,Urine Negative ng/ml (<300)
[2020-05-27 21:12] LABS: Methadone Screen,Urine Negative ng/ml (<300); Opiate Screen,Urine Negative ng/ml (<300)
[2020-05-27 21:13] LABS: Phencyclidine Screen,Urine Negative ng/ml (<25)
--- NOTE | 2020-05-27 21:29 | PC.NURSE ---
72 HOUR HOLD COMPLETED AND SIGNED PER .
--- NOTE | 2020-05-27 21:29 | PC.NURSE ---
Dispatch called and notified that paperwork for the judge's clerk was ready to be collected. Stated they would call the deputy on shift and call us back with an update.
[2020-05-27 21:45] VITALS: BP 105/67; PULSE 80; RESP 18; O2SAT 99
--- NOTE | 2020-05-27 21:59 | PC.NURSE ---
'S OFFICE AT BEDSIDE FOR TRANSPORT.
[2020-05-27 22:24] VITALS: BP 132/74; PULSE 75; RESP 16; TEMP 36.7; O2SAT 98
== END 2020-05-27 22:30 ==
PROVIDERS: Emergency Provider Emergency Medicine
DX: T14.91XA Suicide attempt, initial encounter (principal); Y92.89 Other specified places as the place of occurrence of the external cause; F32.9 Major depressive disorder, single episode, unspecified; F17.210 Nicotine dependence, cigarettes, uncomplicated
CPT/HCPCS: 80053; 80305; 80329; 81001; 81025; 85025; 87086; 93005; 99284